=== PATIENT | female | born 1990 | race Two or more races ===

== ENCOUNTER 2022-02-02 13:58 | Observation (INO) | payer MEDICAID ==
[2022-02-02] MEDS ORDERED: PREN1TAB71 OR (14:42)
== END 2022-02-02 17:01 | disposition home or self-care (01) ==
LOC: LDRP 13:58 → UNDOADMOB 13:58 → LDRP 14:16
PROVIDERS: ADMIT Obstetrics & Gynecology; ATTEND Obstetrics & Gynecology
DX: O36.5930 Maternal care for other known or suspected poor fetal growth, third trimester, not applicable or unspecified (principal); O34.63 Maternal care for abnormality of vagina, third trimester; N89.8 Other specified noninflammatory disorders of vagina; O62.9 Abnormality of forces of labor, unspecified; Z3A.36 36 weeks gestation of pregnancy
CPT/HCPCS: 59025; 76818; 81002; G0378

== ENCOUNTER 2022-02-05 08:32 | Observation (INO) | payer MEDICAID ==
[~2022-02-05 08:32] MED LIST: PREN1TAB71 OR
== END 2022-02-05 14:36 | disposition home or self-care (01) ==
LOC: LDRP 13:06 → UNDOADMOB 13:06 → LDRP 13:43
PROVIDERS: ADMIT Obstetrics & Gynecology; ATTEND Obstetrics & Gynecology
DX: O36.5930 Maternal care for other known or suspected poor fetal growth, third trimester, not applicable or unspecified (principal); Z3A.37 37 weeks gestation of pregnancy
CPT/HCPCS: 59025; 76818; 81002; 94760; G0378

== ENCOUNTER 2022-02-09 10:17 | Observation (INO) | payer MEDICAID | END 2022-02-09 16:38 | disposition home or self-care (01) | LOC: LDRP 15:03 → UNDOADMOB 15:03 → LDRP 15:33 → UNDODISOB 16:38 | PROVIDERS: ADMIT Obstetrics & Gynecology; ATTEND Obstetrics & Gynecology | DX: O36.5930 Maternal care for other known or suspected poor fetal growth, third trimester, not applicable or unspecified (principal); Z3A.37 37 weeks gestation of pregnancy | CPT/HCPCS: 59025; 76818; 81002; 94760; G0378 ==

== ENCOUNTER 2022-02-12 08:32 | Inpatient (IN) | payer MEDICAID ==
[~2022-02-12] VITALS: Ht 167.6 cm; Wt 69.4 kg
[2022-02-12] MEDS ORDERED: BUTORPHANOL TARTRATE 2 MG/1 ML VIAL IV PRN ×2 (11:45)
[2022-02-12] MEDS ORDERED: PHISODERM TOP SOLN 240ML BTL TOP PRN (11:45)
[2022-02-12] MEDS ORDERED: DERMOPLAST 60ML BOTTLE TOP PRN (11:45)
[2022-02-12] MEDS ORDERED: LACT. RINGERS/OXYTOCIN 20UNITS 500 ML IV ONE ×2 (11:45→12:15)
[2022-02-12] MEDS ORDERED: WITCH HAZEL-GLYCERIN PAD TOP PRN (11:45)
[2022-02-12] MEDS ORDERED: PROMETHAZINE HCL 25 MG/ML 1ML IV PRN (11:45)
[2022-02-12] MEDS: miSOPROStol 50 MCG per PRE-CUT 1/2 TAB PO PRN ×2 (13:02→20:18)
[2022-02-12 13:34] LABS: Basophils # (auto) 0 10 ^3/uL (0-0.2); Basophils % (auto) 0.2 % (0.0-2.0); Eosinophils # (auto) 0 10 ^3/uL (0-0.8); Eosinophils % (auto) 0.1 % (0.0-7.0); Hematocrit 37.7 % (36.0-46.0); Hemoglobin 12.8 g/dL (12.2-16.2); Lymphocytes # (auto) 2.3 10 ^3/uL (0.4-5.4); Lymphocytes % (auto) 24.2 % (10.0-50.0); Mean Corpuscular Hemoglobin 31.8 pg (28.0-32.0); Mean Corpuscular Hgb Conc. 33.8 g/dL (32.0-36.0); Monocytes # (auto) 0.5 10 ^3/uL (0-1.3); Monocytes % (auto) 5.6 % (0.0-12.0); Neutrophils # (auto) 6.5 10 ^3/uL (1.6-8.6); Neutrophils % (auto) 69.9 % (37.0-80.0); Nucleated Red Blood Cells % 0.1 %; Red Blood Cells 4.01 10^6/uL (4.0-5.20); Red Cell Distribution Width 13.5 % (11.8-14.3); White Blood Cell 9.4 10^3/uL (4.4-10.8)
[2022-02-12 13:53] LABS: Albumin 3.1 g/dL (3.4-5.0); Calcium 9.4 mg/dL (8.5-10.1); Potassium 3.9 mmol/L (3.5-5.1)
[2022-02-12 13:57] LABS: BUN/Creatinine Ratio 10.5
[2022-02-12 13:59] LABS: Bilirubin, Total 0.3 mg/dL (0.2-1.0); Total Protein 7.1 g/dL (6.4-8.2)
[2022-02-12 13:59] LABS: Urine Bacteria FEW /hpf (None Seen); Urine Blood Negative /uL (Negative); Urine Specific Gravity 1.005 (1.001-1.035); Urine WBC 69 /hpf (0 - 5)
[2022-02-12 14:25] LABS: Amphetamine Screen, Urine NEGATIVE (NEGATIVE); Barbiturate Scree,Urine NEGATIVE (NEGATIVE); Benzodiazephine Screen, Urine NEGATIVE (NEGATIVE); Cannabinoid Screen, Urine NEGATIVE (NEGATIVE); Cocaine Screen, Urine NEGATIVE (NEGATIVE); Opiate Scree,Urine NEGATIVE (NEGATIVE); Phencyclidine Screen, Urine NEGATIVE (NEGATIVE)
[2022-02-12 14:27] LABS: INR 0.89 (0.9-1.15); Partial Thromboplastin Time 25.7 sec (24.6-33.4)
[2022-02-12] MEDS: LACTATED RINGER'S 1,000 ML IV SCH ×2 (16:35→17:50)
[2022-02-13] MEDS: LACTATED RINGER'S 1,000 ML IV SCH (00:06)
[2022-02-13] MEDS ORDERED: LACTATED RINGER'S 1,000 ML IV ONE (00:30)
[2022-02-13] MEDS ORDERED: LACT. RINGERS/OXYTOCIN 20UNITS 1,000 ML IV SCH (00:30)
[2022-02-13] MEDS ORDERED: ROPIVACAINE HCL 200 ML EPI SCH (00:30)
[2022-02-13] MEDS ORDERED: NALOXONE HCL 0.4 MG/ML VIAL IV ONE (00:30)
[2022-02-13] MEDS ORDERED: TERBUTALINE SULFATE 1 MG/ML 1ML VIAL SC PRN (00:30)
[2022-02-13] MEDS ORDERED: ePHEDrine SULFATE 50 MG/ML AMP IV ONE (00:30)
[2022-02-13] MEDS ORDERED: fentaNYL CITRATE 100 MCG/2 ML VL IV ONE (00:30)
[2022-02-13] MEDS ORDERED: LIDOCAINE 2%HCL (LOCAL ANESTH.) INJ 20ML MDV ONE (00:49)
[2022-02-13] MEDS ORDERED: DOCUSATE SOD 100 MG CAP PO PRN (01:30)
[2022-02-13] MEDS ORDERED: ACETAMINOPHEN 325 MG TAB PO PRN (01:30)
[2022-02-13] MEDS ORDERED: ONDANSETRON ODT 4 MG TAB PO PRN (01:30)
[2022-02-13] MEDS ORDERED: LIDOCAINE 2%HCL (LOCAL ANESTH.) INJ 10ml MDV IJ ONE (02:15)
[2022-02-13] MEDS: LIDOCAINE 2%HCL (LOCAL ANESTH.) INJ 10ml MDV IJ PRN ×2 (02:33→02:44)
[2022-02-13] MEDS: IBUPROFEN 800 MG TAB PO SCH ×4 (02:37→20:21)
[2022-02-13 03:00] VITALS: BP 106/54
[2022-02-13 06:06] LABS: RPR Non Reactive (Non Reactive)
[2022-02-13 06:50] VITALS: BP 97/61
[2022-02-13 11:00] VITALS: BP 112/63
[2022-02-13] MEDS ORDERED: TETANUS-DIPTH-ACEL PERTUSSIS 0.5ML SYR Tdap IM ONE (14:45)
[2022-02-13 14:50] VITALS: BP 100/65
[2022-02-13 18:47] VITALS: BP 108/69
[2022-02-13 23:00] VITALS: BP 113/59
[2022-02-14] MEDS: IBUPROFEN 800 MG TAB PO SCH ×2 (02:00→08:34)
[2022-02-14 03:00] VITALS: BP 102/58
[2022-02-14] MEDS ORDERED: IBUP600T27 PO (06:14)
[2022-02-14 07:10] VITALS: BP 112/64
== END 2022-02-14 09:30 | disposition home or self-care (01) | DRG 560 ==
LOC: OBSVTOIN 11:19 → LDRP 11:19 → UNDOADMOB 11:19 → INTOOBSV 11:19 → LDRP 11:42 → OBSVTOIN 11:42 → LDRP 02-13 05:15
PROVIDERS: ADMIT Obstetrics & Gynecology; ATTEND Obstetrics & Gynecology
PROC: 3E0P7VZ Introduction of Hormone into Female Reproductive, Via Natural or Artificial Opening (ICD-10-PCS; 2022-02-12)
PROC: 10E0XZZ Delivery of Products of Conception, External Approach (ICD-10-PCS; principal; 2022-02-13)
PROC: 0UQGXZZ Repair Vagina, External Approach (ICD-10-PCS; 2022-02-13)
DX: O36.5930 Maternal care for other known or suspected poor fetal growth, third trimester, not applicable or unspecified (principal); Z37.0 Single live birth; O71.4 Obstetric high vaginal laceration alone; Z3A.38 38 weeks gestation of pregnancy; Z20.822 Contact with and (suspected) exposure to COVID-19
CPT/HCPCS: 36415; 59025; 59409; 80053; 80307; 81001; 81002; 85025; 85610; 85730; 86592; 86850; 86900; 86901; 87426; 90715; 94760; 96360; 96361; 96365; 96366; 96372; G0378; J2590